=== PATIENT | female | born 1975 | race Two or more races ===

== ENCOUNTER 2022-12-03 16:56 | Emergency (ER) | payer MEDICAID ==
[~2022-12-03] VITALS: Ht 165.1 cm; Wt 90.0 kg
[2022-12-03] MEDS ORDERED: ACETAMINOPHEN 325MG TABLET PO ONE (17:45)
[2022-12-03] MEDS ORDERED: ASPIRIN 325MG TABLET PO ONE (22:00)
[2022-12-03] MEDS: ACETAMINOPHEN 325MG TABLET PO NR ×3 (22:15→22:34)
[2022-12-03 22:39] LABS: BASOPHILS % 0.6 % (0.0-2.0); CHLORIDE 108 mEq/L (98-107); EOSINOPHILS % 2.5 % (0.0-5.0); HEMATOCRIT. 37.1 % (36.0-48.0); HEMOGLOBIN. 12.4 g/dL (12.0-16.0); LYMPHOCYTES % 31.6 % (20.0-50.0); MEAN CORPUSCULAR HEMOGLOBIN 29.6 pg (28.0-32.0); MEAN CORPUSCULAR VOLUME 88.1 fL (81.0-99.0); MEAN PLATELET VOLUME 8.4 fl (7.4-10.4); MONOCYTES % 4.6 % (2.0-8.0); NEUTROPHILS % 60.7 % (40.0-76.0); PLATELET 254 x1000/uL (130-400); RED BLOOD CELL COUNT 4.21 mill/uL (4.2-5.4); RED CELL DISTRIBUTION WIDTH 13.4 % (11.6-14.6)
[2022-12-03 22:47] LABS: INR 0.9; PROTHROMBIN TIME 9.9 sec (9.6-11.0)
[2022-12-04] MEDS ORDERED: HYDRALAZINE HCL 50MG TABLET PO ONE (00:45)
[2022-12-04 02:12] VITALS: BP 165/78
== END 2022-12-04 02:10 | disposition home or self-care (01) ==
LOC: ER 16:56
DX: I10 Essential (primary) hypertension (principal)
CPT/HCPCS: 36415; 71045; 73030; 80053; 82962; 84484; 85025; 85610; 93005; 99285; Z7610